=== PATIENT | female | born 1955 | race Caucasian/White ===

== ENCOUNTER → 2019-07-16 | Outpatient (CLI) | payer BC, OTHER ==
--- NOTE | 2019-07-17 09:01 | REP ---
HISTORY: Cough. COMPARISON: None. FINDINGS: The superior mediastinal structures are midline. The cardiac silhouette is unremarkable in size, shape and position. The diaphragmatic surfaces of the lungs are regular and the costophrenic angles are clear. The pulmonary miner are clear. The imaged osseous structures are intact. IMPRESSION: There is no acute cardiopulmonary disease. Electronically Signed by Paul Melgar DO 07/19/2019 07:48 A
== END ==
LOC: M ADAMS 13:36
PROVIDERS: ATTEND Family Medicine
DX: J45.31 Mild persistent asthma with (acute) exacerbation (principal); R05 Cough